=== PATIENT | female | born 2000 | race Hispanic/Latino ===

== ENCOUNTER 2021-12-22 07:50 | Emergency (ER) | payer MEDICAID | END 2021-12-22 08:25 | disposition home or self-care (01) | LOC: NAV ERS 07:50 | DX: J02.9 Acute pharyngitis, unspecified (principal) | CPT/HCPCS: 87081; 87430; 99283 ==

== ENCOUNTER 2021-12-23 10:19 | Emergency (ER) | payer MEDICAID | END 2021-12-23 11:10 | disposition home or self-care (01) | LOC: NAV ERS 10:19 | DX: J02.9 Acute pharyngitis, unspecified (principal) ==